=== PATIENT | male | born 1970 | race Native Hawaiian/Other Pacific Islander ===

== ENCOUNTER 2019-02-24 13:32 | Outpatient (CLI) | payer BC | END 2019-02-24 23:30 | disposition home or self-care (01) | LOC: RAD 13:32 | DX: M25.461 Effusion, right knee (principal) ==

== ENCOUNTER 2021-04-11 16:52 | Outpatient (CLI) | payer BC, OTHER | END 2021-04-11 19:06 | disposition home or self-care (01) | LOC: RAD 16:52 | PROVIDERS: ATTEND Nurse Practitioner Family | DX: U07.1 COVID-19 (principal) ==

== ENCOUNTER 2021-12-11 10:05 | Outpatient (CLI) | payer BC | END 2021-12-11 19:42 | disposition home or self-care (01) | LOC: RESP 10:05 | PROVIDERS: ATTEND Nurse Practitioner Family | DX: G56.01 Carpal tunnel syndrome, right upper limb (principal); G56.21 Lesion of ulnar nerve, right upper limb | CPT/HCPCS: 95885; 95910 ==

== ENCOUNTER 2021-12-21 10:12 | Outpatient (CLI) | payer BC | END 2021-12-21 20:29 | disposition home or self-care (01) | LOC: US 10:12 | PROVIDERS: ATTEND Nurse Practitioner Family | DX: R74.01 Elevation of levels of liver transaminase levels (principal) ==